=== PATIENT | female | born 1965 | race Caucasian/White ===

== ENCOUNTER 2017-04-09 04:52 | Observation (INO) ==
[2017-04-09] MEDS ORDERED: *HR* Morphine 2 MG/ML SYRINGE IVP ONE (05:16)
[2017-04-09] MEDS ORDERED: Ondansetron 4 MG/2 ML VIAL IVP ONE ×2 (05:16→18:28)
[2017-04-09] MEDS ORDERED: 0.9 % Sodium Chloride 1,000 ML IVC ONE (05:16)
[2017-04-09 05:21] LABS: Bilirubin,Urine Negative (Negative); Blood,Urine Negative (Negative); Clarity,Urine Clear (Clear); Color,Urine Yellow (Yellow); Glucose,Urine (UA) Normal (Normal); Ketones,Urine Negative (Negative); Leukocyte Esterase,Urine Negative (Negative); Nitrite,Urine Negative (Negative); PH,Urine 5.5 pH Units (5.0-8.0); Protein,Urine Negative (Neg-Trace); Specific Gravity,Urine 1.018 (1.010-1.025); Urobilinogen,Urine Normal (Normal)
[2017-04-09] MEDS ORDERED: cefOXitin 2,000 MG in D5% in Water (Mini-Bag+) 100 ML IVPB ONE (05:44)
[2017-04-09 05:52] LABS: Basophils # 0.1 K/mcL (0.0-0.2); Basophils % 0.3 %; Eosinophils % 0.1 %; Hematocrit 41.5 % (35.3-44.9); Hemoglobin 13.6 g/dL (11.5-15.4); Immature Granulocytes % 0.6 % (0-4); Lymphocytes # 1.9 K/mcL (0.6-4.6); Mean Corpuscular HGB Conc 32.8 g/dL (31.6-35.5); Mean Corpuscular Hemoglobin 28.8 pg (28.0-33.3); Mean Corpuscular Volume 87.7 fL (83.0-100.0); Mean Platelet Volume 8.8 fL (9.4-12.4); Monocytes # 0.9 K/mcL (0.0-1.3); Monocytes % 4.4 %; Neutrophils # 18.1 K/mcL (1.6-8.9); Platelet Count 377 K/mcL (140-400); Red Blood Count 4.73 M/mcL (3.82-4.97); Red Cell Distribution Width 12.4 % (11.5-14.5); Segmented Neutrophils % 85.6 %
--- NOTE | 2017-04-09 05:52 | Emergency Department Note ---
Disposition Clinical Impression: Acute appendicitis Qualifiers: Acute appendicitis type: with localized peritonitis Qualified Code(s): K35.3 - Acute appendicitis with localized peritonitis Disposition: Home, Self-Care Condition: Good Referrals: Lima Gotti CNP [Primary Care Provider] - Forms: Work/School Release, ED Satisfaction Letter Abdominal Pain HPI - General Chief Complaint: ED Abdominal Pain Stated Complaint: "Abd Pain/R Flank Pain" Source: patient Nursing Notes Reviewed: Yes Vital Signs Reviewed: Yes - History of Present Illness HPI Narrative: 51-year-old female presents with acute onset abdominal pain at 11 PM last evening. Pain worse with movement. Previous history of , cholecystectomy. Admits to history of hypertension currently taking lisinopril. Denies any other medical problems. Abdominal pain isolated to right lower quadrant on arrival. Vital signs stable on arrival. Pain Scale: 8 - Related Data Home Medications Medication Instructions Recorded Confirmed Duloxetine HCl [Cymbalta] 60 mg PO DAILY 07/14/15 04/04/16 Ezetimibe/Simvastatin [Vytorin 1 tab PO DAILY 07/14/15 04/04/16 10-40 mg Tablet] Lisinopril/Hydrochlorothiazide 1 tab PO DAILY 07/14/15 04/04/16 [Zestoretic 10-12.5 mg Tablet] ALPRAZolam [Xanax 1 MG Tablet] 1 mg PO TID PRN 04/04/16 04/04/16 Biotin 5 mg PO DAILY 04/04/16 04/04/16 Bupropion HCl [Wellbutrin Xl] 300 mg PO DAILY 04/04/16 04/04/16 Allergies Allergy/AdvReac Type Severity Reaction Status Date / Time Penicillins [PCN] Allergy Rash Verified 04/09/17 04:57 All systems ED: reviewed and negative except as stated. Abdominal Pain PMH - Past Medical History Medical history: Reports: hyperlipidemia, hypertension, other Female Surgical History: Reports: , cholecystectomy, hysterectomy Psychiatric history: Reports: depression - Social History Smoking status: Never smoker Alcohol use: Reports: none Drug use: Reports: none Physical Exam Right lower quadrant abdominal pain tender on palpation without peritonitis - General Limitations: no limitations General appearance: alert Course Vital Signs Temperature 97.7 F 04/09/17 04:54 Pulse Rate 106 04/09/17 04:54 Respiratory Rate 16 04/09/17 04:54 Blood Pressure 126/80 04/09/17 04:54 O2 Sat by Pulse Oximetry 94 04/09/17 04:54 Temperature 97.7 F 04/09/17 04:54 Pulse Rate 91 04/09/17 05:49 Respiratory Rate 16 04/09/17 05:49 Blood Pressure 110/74 04/09/17 05:49 O2 Sat by Pulse Oximetry 95 04/09/17 05:49 Oxygen Delivery Oxygen Delivery Room Air Abdominal Pain - MDM Narrative Medical decision making narrative: Female patient with acute appendicitis. Admit to surgical services. Discussed case with attending surgeon. Zosyn administered. - Lab Data Lab Results 04/09/17 Range/Units 05:10 Urine Color Yellow (Yellow) Urine Clarity Clear (Clear) Urine pH 5.5 (5.0-8.0) pH Units Ur Specific [place] 1.018 (1.010-1.025) Urine Protein Negative (Neg-Trace) mg/dL Urine Glucose (UA) Normal (Normal) mg/dL Urine Ketones Negative (Negative) mg/dL Urine Blood Negative (Negative) Urine Nitrite Negative (Negative) Urine Bilirubin Negative (Negative) Urine Urobilinogen Normal (Normal) mg/dL Ur Leukocyte Esterase Negative (Negative)
[2017-04-09 06:08] LABS: Alanine Aminotransferase 17 Units/L (0-55); Albumin 3.8 g/dL (3.5-5.0); Albumin/Globulin Ratio 1.1 (1.1-2.2); Alkaline Phosphatase 126 Units/L (38-126); Aspartate Amino Transferase 17 Units/L (5-34); BUN/Creatinine Ratio 11 (6-26); Bilirubin,Direct 0.2 mg/dL (0.0-0.5); Bilirubin,Indirect 0.1 mg/dL (0.0-1.2); Bilirubin,Total 0.3 mg/dL (0.2-1.2); Blood Urea Nitrogen 12 mg/dL (7-20); Carbon Dioxide 26 mEq/L (19-29); Chloride 101 mEq/L (98-109); Globulin 3.4 g/dL (2.4-3.5); Glucose 133 mg/dL (70-99); Lipase 13 Units/L (8-78); Osmolality,Calculated 286 (280-300); Potassium 3.4 mEq/L (3.5-4.5); Sodium 137 mEq/L (136-145); Total Protein 7.2 g/dL (6.0-8.3); eGFR For African Americans > 60 (> 60); eGFR For Non-African Americans 54 (> 60)
[2017-04-09] MEDS ORDERED: Naloxone 0.4 MG/ML INJ IVP PRN ×2 (07:08→19:37)
[2017-04-09] MEDS ORDERED: *HR* Metoprolol 5 MG/5 ML VIAL IVP PRN ×2 (07:08→19:37)
[2017-04-09] MEDS ORDERED: *HR* Morphine 2 MG/ML SYRINGE IVP PRN ×2 (07:08→19:37)
[2017-04-09] MEDS ORDERED: *HR* Promethazine 25 MG/ML VIAL IVP PRN ×3 (07:08→19:37)
[2017-04-09] MEDS ORDERED: Ondansetron 4 MG/2 ML VIAL IVP PRN ×2 (07:08→19:37)
[2017-04-09] MEDS ORDERED: 0.9 % Sodium Chloride 1,000 ML IVC SCH (07:15)
[2017-04-09] MEDS: MetroNIDAZOLE 500 MG/100 ML 500 MG/100 ML BAG IVPB SCH ×3 (08:50→23:31)
[2017-04-09] MEDS ORDERED: SIMVASTATIN PO SCH (09:00)
[2017-04-09] MEDS ORDERED: Pantoprazole 40 MG VIAL IVP SCH (09:00)
[2017-04-09] MEDS ORDERED: EZETIMIBE PO SCH (09:00)
[2017-04-09] MEDS ORDERED: BuPROPion XL (24 HR) 150 MG TABLET PO SCH (09:00)
--- NOTE | 2017-04-09 10:43 | General Surg History&Physical ---
<Jeff Chanel - Last Filed: 04/09/17 15:50> Date of Encounter: 04/09/17 Time of Encounter: 07:45 Assessment and Plan (1) Acute appendicitis Current Visit: Yes Status: Acute Imaging and clinical picture, including physical exam and elevated WBC, are consistent with appendicitis. Patient is NPO, receiving iv fluids, and antibiotics (cipro/flagyl). Plan is for laparoscopic appendectomy, possible open. Risks and benefits were discussed and patient wishes to proceed. The assessment and plan as outlined above was discussed with the patient and/or family members who expressed understanding and agreement. All questions were answered. Qualifiers: Acute appendicitis type: with localized peritonitis Qualified Code(s): K35.3 - Acute appendicitis with localized peritonitis (2) HTN (hypertension) Current Visit: Yes Status: Acute The assessment and plan as outlined above was discussed with the patient and/or family members who expressed understanding and agreement. All questions were answered. Qualifiers: Qualified Code(s): I10 - Essential (primary) hypertension History of Present Illness Chief complaint: Abdominal Pain HPI: Ms. Mcgee is a 51 year old female with PMH of depression, HTN, and HLD who presents to [facility] with 1 day of abdominal pain. She states that the pain is 8-9/ 10 in intensity, constant in timing, and alternating sharp and dull in quality. It's location was originally all across her lower abdomen but has since localized to the RLQ. She admits to a BM that was diarrhea soon after the pain started that originally lessened the pain, but it has returned in full force. She states that walking around made the pain worse, and she denies any remitting factors. She admits to nausea, vomiting x1, and anorexia. She denies fevers and chills. She has a past surgical history that includes, , hysterectomy, and cholecystectomy. Past Med Surg Social Fam HX - Past Medical History Medical history: hyperlipidemia, hypertension, other Psychiatric history: depression - Past Surgical History Surgical History: , cholecystectomy, hysterectomy - Social History Smoking Status: Never smoker Smokeless Tobacco Status: No Alcohol use: occasionally Drug use: none - Family History Father Living Status: Age at : 61 Cause of : lung cancer Paternal Grandmother Living Status: Cause of : CVA Medications and Allergies Duloxetine HCl [Cymbalta] 60 mg PO DAILY 07/14/15 [History] Ezetimibe/Simvastatin [Vytorin 10-40 mg Tablet] 1 tab PO DAILY 07/14/15 [History ] Lisinopril/Hydrochlorothiazide [Zestoretic 10-12.5 mg Tablet] 1 tab PO DAILY [History] ALPRAZolam [Xanax 1 MG Tablet] 1 mg PO TID PRN 04/04/16 [History] Bupropion HCl [Wellbutrin Xl] 300 mg PO DAILY 04/04/16 [History] Allergies Penicillins [PCN] Allergy (Verified 04/09/17 04:57) Rash Review of Systems All systems PM: A 10-system review of systems was performed and is negative for pertinent findings except as documented above in the HPI. - Constitutional anorexia, night sweats, no chills, no fever(s) - Gastrointestinal abdominal pain, bloating, diarrhea, nausea, vomiting General Surgery Exam Initial Vital Signs Temp Pulse Resp BP Pulse Ox 97.7 F 106 16 126/80 94 04/09/17 04:54 04/09/17 04:54 04/09/17 04:54 04/09/17 04:54 04/09/17 04:54 - General physical appearance well developed, well nourished, no distress - Eyes normal ocular movement - ENT atraumatic, normocephalic - Neck trachea midline - Respiratory normal expansion, normal respiratory effort, clear to auscultation - Cardiovascular Cardiovascular exam: Present: RRR - Abdomen Abdomen general surgery: Present: soft, tender. Absent: guarding, rebound, peritoneal Abdominal Tenderness: Present: RLQ - Musculoskeletal Present: normal posture - Psychiatric Psychiatric general surgery: Present: appropriate, speech is normal Results - Labs 04/09/17 05:43 04/09/17 05:43 Abnormal lab results WBC 21.1 K/mcL (4.3-11.1) H 04/09/17 05:43 MPV 8.8 fL (9.4-12.4) L 04/09/17 05:43 Neutrophils # 18.1 K/mcL (1.6-8.9) H 04/09/17 05:43 Potassium 3.4 mEq/L (3.5-4.5) L 04/09/17 05:43 Est GFR (Non-Af Amer) 54 (> 60) L 04/09/17 05:43 Glucose 133 mg/dL (70-99) H 04/09/17 05:43 All other labs normal. - Imaging CT scan - abdomen: report reviewed (IMPRESSION: Appendicitis. D/T: 2016 05:31:53 / Jorge Millan MD / Jorge Millan MD Interpreting Provider: Jorge Millan MD : 54), image reviewed CT scan - pelvis: report reviewed, image reviewed <Sammie lCark L - Last Filed: 04/09/17 19:11> Date of Encounter: 04/09/17 Assessment and Plan (1) Acute appendicitis Current Visit: Yes Status: Acute The assessment and plan as outlined above was discussed with the patient and/or family members who expressed understanding and agreement. All questions were answered. Qualifiers: Acute appendicitis type: with localized peritonitis Qualified Code(s): K35.3 - Acute appendicitis with localized peritonitis (2) HTN (hypertension) Current Visit: Yes Status: Acute The assessment and plan as outlined above was discussed with the patient and/or family members who expressed understanding and agreement. All questions were answered. Qualifiers: Hypertension type: essential hypertension Qualified Code(s): I10 - Essential (primary) hypertension (3) Acute appendicitis Current Visit: Yes Status: Acute The assessment and plan as outlined above was discussed with the patient and/or family members who expressed understanding and agreement. All questions were answered. Discussed CT results and labs with patient. She has acute appendicitis. WIll plan laparoscopic appendectomy, possible open ,risks and benefits discussed and she wishes to proceed continue Abx prn pain control npo ivfh Qualifiers: Acute appendicitis type: unspecified acute appendicitis type Qualified Code (s): K35.80 - Unspecified acute appendicitis History of Present Illness HPI: Ms. Mcgee is a 51 year old female who yesterday started having lower mid abdominal pain which has radiated to RLQ. SHe had some diarrhea and felt a little better. Around 11 pm the RLQ pain was severe. She took tums for N/V which didn't help. No dysuria. No fevers chills or night sweats. Past Med Surg Social Fam HX - Past Medical History Source: patient - Past Surgical History Surgical History: , cholecystectomy, hysterectomy, other (tonsillectomy ) Review of Systems All systems PM: reviewed and no additional remarkable complaints except as stated All systems PM: A 10-system review of systems was performed and is negative for pertinent findings except as documented above in the HPI. General Surgery Exam Initial Vital Signs Temp Pulse Resp BP Pulse Ox 97.7 F 106 16 126/80 94 04/09/17 04:54 04/09/17 04:54 04/09/17 04:54 04/09/17 04:54 04/09/17 04:54 - General physical appearance well nourished - Eyes PERRL, normal ocular movement - Neck trachea midline - Respiratory normal expansion, clear to auscultation - Cardiovascular Cardiovascular exam: Present: RRR, no murmurs/rubs/gallops - Abdomen Abdomen general surgery: Present: bowel sounds present, tender. Absent: guarding, rebound, peritoneal Abdominal Tenderness: Present: RLQ - Integumentary Integumentary general surgery: Present: warm and dry, no abnormal pigmentation - Neurologic Present: CN 2-12 grossly intact - Musculoskeletal Present: normal posture - Psychiatric Psychiatric general surgery: Present: A&Ox3, appropriate, speech is normal Results - Labs 04/09/17 05:43 04/09/17 05:43 Abnormal lab results WBC 21.1 K/mcL (4.3-11.1) H 04/09/17 05:43 MPV 8.8 fL (9.4-12.4) L 04/09/17 05:43 Neutrophils # 18.1 K/mcL (1.6-8.9) H 04/09/17 05:43 Potassium 3.4 mEq/L (3.5-4.5) L 04/09/17 05:43 Est GFR (Non-Af Amer) 54 (> 60) L 04/09/17 05:43 Glucose 133 mg/dL (70-99) H 04/09/17 05:43 POC Glucose 100 (58-89) H 04/09/17 11:40 All other labs normal. - Imaging CT scan - abdomen: report reviewed, image reviewed CT scan - pelvis: report reviewed, image reviewed - Attending Attestation I examined this patient and my medical decision-making was reviewed with the Resident Physician. I agree with the documented findings, disposition and treatment plan as described except to the extent set forth below.
[2017-04-09] MEDS ORDERED: *HR* Propofol 200 MG/20 ML VIAL IVP ONE (16:15)
[2017-04-09] MEDS ORDERED: Dexamethasone 4 MG/ML VIAL ONE (16:15)
[2017-04-09] MEDS ORDERED: *HR* Rocuronium Bromide 50 MG/5 ML VIAL ONE (16:15)
[2017-04-09] MEDS ORDERED: Lidocaine -MPF 2% 2 ML VIAL ONE (16:15)
[2017-04-09] MEDS ORDERED: Ondansetron 4 MG/2 ML VIAL ONE (16:15)
[2017-04-09] MEDS ORDERED: *HR* FentaNYL (PF) 100 MCG/2 ML VIAL ONE (16:15)
[2017-04-09] MEDS ORDERED: *HR* Midazolam HCl 2 MG/2 ML VIAL ONE (16:15)
[2017-04-09] MEDS ORDERED: Lidocaine -MPF 4% 5 ML AMPUL ONE (16:22)
--- NOTE | 2017-04-09 16:47 | Anesthesia Evaluation PreOp ---
Date of Encounter: 04/09/17 Time of Encounter: 16:43 - Past History Planned Operation: Lap appendectomy Cardiac History: HTN, Hyperlipidemia Pulmonary History: Denies Any Significant HX CARGO AGENT History: Denies Any Significant HX Other Medical History: Denies Any Significant HX Anesthesia History: No Prior Anesthetic Complications Alcohol Use: occasionally Drug use: none Medications and Allergies Duloxetine HCl [Cymbalta] 60 mg PO DAILY 07/14/15 [History] Ezetimibe/Simvastatin [Vytorin 10-40 mg Tablet] 1 tab PO DAILY 07/14/15 [History ] Lisinopril/Hydrochlorothiazide [Zestoretic 10-12.5 mg Tablet] 1 tab PO DAILY [History] ALPRAZolam [Xanax 1 MG Tablet] 1 mg PO TID PRN 04/04/16 [History] Bupropion HCl [Wellbutrin Xl] 300 mg PO DAILY 04/04/16 [History] Allergies Penicillins [PCN] Allergy (Verified 04/09/17 04:57) Rash - Meds/Allergy Pre-op Review Medications Reviewed: Yes Allergies Reviewed: Yes Beta Blockers on Current Med List: No Anesthesia Results - Labs 04/09/17 05:43 04/09/17 05:43 - Imaging EKG: report reviewed, image reviewed (SINUS RHYTHM NONSPECIFIC T-WAVE ABNORMALITY) Anesthesia Exam Last Vital Signs Temp 98.4 F 04/09/17 15:45 Pulse 90 04/09/17 15:45 Resp 14 04/09/17 15:45 BP 104/70 04/09/17 15:45 Pulse Ox 95 04/09/17 15:45 Weight: 85 kg NPO (# of Hours): >> 8 hrs - HEENT Pupil (Motor): Pupils equal, EOMI Mallampati: III Teeth: Missing, Poor dentition Oral Opening: Greater than 3 - CARGO AGENT LOC: Oriented CARGO AGENT Motor: Normal RUE, Normal LUE, Normal RLE, Normal LLE, Normal Face - Cardiac Rhythm: Regular Murmur: None - Pulmonary Breath Sounds: bilateral Clear Respiratory Effort: Symmetrical Anesthesia Assess/Plan ASA Score: 2 [place] Scale for Level of Consciousness: Cooperative, oriented, and tranquil Anesthetic Plan: General Monitoring Plan: Standard Monitors Recovery Plan: PACU
[2017-04-09] MEDS ORDERED: *HR* Labetalol 20 MG/4 ML SYRINGE IVP PRN (18:28)
[2017-04-09] MEDS ORDERED: Ketorolac 15 MG/ML VIAL IVP ONE (18:28)
[2017-04-09] MEDS ORDERED: Dexamethasone 4 MG/ML VIAL IVP ONE (18:28)
[2017-04-09] MEDS ORDERED: *HR* HYDROmorphone (PF) 1 MG/ML SYRINGE IVP PRN (18:28)
[2017-04-09] MEDS ORDERED: Neostigmine Methylsulfate 3 MG/3 ML SYRINGE ONE ×2 (18:37→18:45)
--- NOTE | 2017-04-09 19:13 | Operative Note ---
Date of procedure: 04/09/17 Pre-op diagnosis: acute appendicitis Post-op diagnosis: same Procedure: Laparoscopic appendectomy Complications: None immediate Anesthesia: GETA, local Local Anesthetics: 0.5% Sensorcaine HCL SubQ (cc) (30) Surgeon: Sammie Clark Estimated blood loss (cc): 5 Specimen: appendix Condition: stable Disposition: PACU Procedure in Detail: The patient was brought into the operating suite and placed supine on the operating table. Sign-in was performed and everyone was in agreement. Anesthesia was induced and patient was endotracheally intubated by anesthesia without incident. An OG tube was placed by anesthesia. The abdomen was prepped and draped in the usual sterile fashion. A timeout was performed and again everyone was in agreement. A supraumbilical incision was made through the skin and the subcutaneous tissue with an 11 blade. Towel clamps were placed on either side of the umbilicus for retraction. S-retractors were used to dissect down to the anterior abdominal wall linea alba fascia. A Veress needle was placed into this incision and a water drop test confirmed placement and the abdomen was insufflated. We then entered the abdomen with the 5 mm 0 degree laparoscope on a 5 mm X-gael trocar. The area under entry was visualized and there was no bleeding and no apparent bowel injury. We placed a suprapubic 5 mm port under direct visualization after first incising the skin with an 11 blade. The laparoscope was placed through this and we exchanged the supraumbilical port for a 12 mm port under direct visualization. We then placed another 5 mm port in the left lower quadrant position under direct visualization after first incising the skin with an 11 blade. The patient was placed in slight Trendelenburg left side down position. The cecum was located as was the appendix. The appendix was grasped and retracted anteriorly and caudally with a laparoscopic [place]. A [place] was used to dissect between the mesoappendix and the appendix at the base of the cecum. The mesoappendix was transected with a laparoscopic flex-ex ETS stapler using a white load. The appendix was transected at the base of the cecum with the same stapler utilizing a white load. The appendix was placed in a laparoscopic Endo Catch bag and removed via the supraumbilical incision site. Both staple lines were evaluated and there was no bleeding and both staple lines were intact. The area was irrigated with sterile saline which was then suctioned free from the abdomen. The insufflation was suctioned free from the abdomen and all trochars removed. We closed the abdominal wall at the supraumbilical incision site with an 0 Vicryl [id number] stitch. A 30 cc of 0.5% Marcaine was injected subcutaneously at the 3 port sites. The skin at the two 5 mm port sites was closed with 4-0 Monocryl interrupted subcuticular stitches. The skin at the supraumbilical incision site was closed with a 4-0 Monocryl running subcuticular stitch. Steri-Strips were applied to the wounds. The patient was extubated in the OR and tolerated the procedure well and was taken to PACU after all lap and instrument counts were correct at the end of the case.
--- NOTE | 2017-04-09 19:33 | Anesthesia Evaluation Post Op ---
Date of Encounter: 04/09/17 Time of Encounter: 19:30 - Vital Signs Vital Signs: Vital Signs/O2 Sat/Glucose, Most Current Temp Pulse Resp BP Pulse Ox 04/09/17 19:26 98.6 F 96 16 97/65 93 04/09/17 19:16 102 18 99/59 93 04/09/17 19:06 97 20 98/61 95 04/09/17 18:56 97.8 F 102 16 106/74 93 04/09/17 15:45 98.4 F 90 14 104/70 95 - Lungs Lungs: Clear Ascult./Percussion - Airway Airway: Non-obstructed - Cardiovascular Regular Rate - Mental Status Mental Status: Alert & Oriented, Answers Appropriately - Pain Pain Scale: 0 - Nausea Vomiting Nausea Vomiting: Not Present - Hydration Hydration: Ice chips - Discharge PostOp Status: Transfer Patient to floor
[2017-04-09] MEDS: 0.9 % Sodium Chloride 1,000 ML IVC SCH (21:20)
[2017-04-10 05:02] LABS: Basophils % 0.1 %; Hematocrit 37.2 % (35.3-44.9); Immature Granulocytes % 0.4 % (0-4); Lymphocytes # 0.7 K/mcL (0.6-4.6); Lymphocytes % 4.9 %; Mean Corpuscular HGB Conc 32.3 g/dL (31.6-35.5); Mean Corpuscular Hemoglobin 28.8 pg (28.0-33.3); Mean Corpuscular Volume 89.2 fL (83.0-100.0); Mean Platelet Volume 9.2 fL (9.4-12.4); Monocytes # 0.1 K/mcL (0.0-1.3); Neutrophils # 13.3 K/mcL (1.6-8.9); Platelet Count 333 K/mcL (140-400); Red Blood Count 4.17 M/mcL (3.82-4.97); Red Cell Distribution Width 12.8 % (11.5-14.5); Segmented Neutrophils % 93.6 %
[2017-04-10] MEDS: MetroNIDAZOLE 500 MG/100 ML 500 MG/100 ML BAG IVPB SCH (07:45)
[2017-04-10] MEDS: 0.9 % Sodium Chloride 1,000 ML IVC SCH (08:01)
[2017-04-10] MEDS ORDERED: Patient Taking Own Medication 1 EACH PO SCH (09:00)
[2017-04-10] MEDS ORDERED: Pantoprazole 40 MG VIAL IVP SCH (09:00)
[2017-04-10] MEDS ORDERED: BuPROPion XL (24 HR) 150 MG TABLET PO SCH (09:00)
--- NOTE | 2017-04-10 09:57 | General Surgery Progress Note ---
Date of Encounter: 04/10/17 Time of Encounter: 08:00 - Assessment and Plan (1) Acute appendicitis Current Visit: Yes Status: Acute s/p laparoscopic appendectomy with Dr. Clark POD #1 Clinically improved WBC trending down Tolerating clears, but no flatus or BM at this point Await return of bowel function Qualifiers: Acute appendicitis type: with localized peritonitis Qualified Code(s): K35.3 - Acute appendicitis with localized peritonitis (2) HTN (hypertension) Current Visit: Yes Status: Acute Stable Qualifiers: Hypertension type: essential hypertension Qualified Code(s): I10 - Essential (primary) hypertension Subjective Patient reports: no new complaints, feels better, tolerating liquids well, voiding w/o difficulty, no flatus, no bowel movement, afebrile Objective Vital Signs - Last 8 Hours Temp Pulse Resp BP Pulse Ox 04/10/17 07:35 93 04/10/17 07:33 98.2 F 88 18 95/67 93 04/10/17 04:33 98.1 F 98 18 126/72 95 Intake and Output 04/09/17 04/10/17 04/10/17 23:59 07:59 15:59 Intake Total 0 / 0 1675 / 1675 Output Total 5 / 5 700 / 700 Balance -5 / -5 975 / 975 Intake: IV Fluids 1675 / 1675 0.9 % Sodium Chloride 1, 1575 / 1575 000 ML @ 110 mls/hr IVC . Q9H6M [facility] Rx#:[id number] Flagyl Premix 500 MG/100 100 / 100 ML 500 mg In 100 ml @ 100 mls/hr IVPB Q8HR [facility] Rx# :[id number] Oral 0 / 0 0 / 0 Output: Urine 700 / 700 Estimated Blood Loss 5 / 5 Other: Meal NPO Percent of Meal Consumed 0% # Voids 2 Weight 85.16 kg Patient Weight 04/10/17 23:59 Weight 85.16 kg - General physical appearance well developed, well nourished, no distress - Eyes normal ocular movement - ENT atraumatic, normocephalic - Respiratory normal expansion, normal respiratory effort, clear to auscultation - Cardiovascular Cardiovascular exam: Present: RRR - Abdomen Abdomen: Present: bowel sounds present, soft, non tender - Incision Incision: Present: clean and dry, intact - Musculoskeletal normal posture - Psychiatric speech is normal - Labs 04/10/17 04:09 04/09/17 05:43 - VTE Documentation of Mechanical Device: Intermittent pneumatic compression device Consult Discharge Plan - Plan Referrals: Lima Gotti, FEEDER OPERATOR [Primary Care Provider] -
--- NOTE | 2017-04-10 10:51 | Discharge Summary ---
<Jeff Chanel - Last Filed: 04/10/17 10:48> Date of Encounter: 04/10/17 Time of Encounter: 07:30 - Discharge Diagnosis (1) Acute appendicitis Priority: Primary Status: Resolved Qualifiers: Acute appendicitis type: with localized peritonitis Qualified Code(s): K35.3 - Acute appendicitis with localized peritonitis (2) HTN (hypertension) Priority: Secondary Status: Acute Qualifiers: Hypertension type: essential hypertension Qualified Code(s): I10 - Essential (primary) hypertension - Discharge Medications Prescriptions: OxyCODONE/APAP 10/325 [Percocet 10/325 MG] 1 each PO Q4HR PRN #30 tablet PRN Reason: Pain Docusate [Colace] 100 mg PO BID #10 capsule Home Medications: Duloxetine HCl [Cymbalta] 60 mg PO DAILY 07/14/15 [History] Ezetimibe/Simvastatin [Vytorin 10-40 mg Tablet] 1 tab PO DAILY 07/14/15 [History ] Lisinopril/Hydrochlorothiazide [Zestoretic 10-12.5 mg Tablet] 1 tab PO DAILY [History] ALPRAZolam [Xanax 1 MG Tablet] 1 mg PO TID PRN 04/04/16 [History] Bupropion HCl [Wellbutrin Xl] 300 mg PO DAILY 04/04/16 [History] Docusate [Colace] 100 mg PO BID #10 capsule 04/10/17 [Rx] OxyCODONE/APAP 10/325 [Percocet 10/325 MG] 1 each PO Q4HR PRN #30 tablet [Rx] Allergies/Adverse Reactions: Allergies Penicillins [PCN] Allergy (Verified 04/09/17 04:57) Rash General Surgery Exam Initial Vital Signs Temp Pulse Resp BP Pulse Ox 97.7 F 106 16 126/80 94 04/09/17 04:54 04/09/17 04:54 04/09/17 04:54 04/09/17 04:54 04/09/17 04:54 - General physical appearance well developed, well nourished, no distress - Eyes normal ocular movement - ENT atraumatic, normocephalic - Neck trachea midline - Respiratory normal expansion, normal respiratory effort, clear to auscultation - Cardiovascular Cardiovascular exam: Present: RRR - Abdomen Abdomen general surgery: Present: bowel sounds present, soft, tender (Expected postoperative tenderness) - Incision Incision: Present: clean and dry, intact - Musculoskeletal Present: normal posture - Psychiatric Psychiatric general surgery: Present: appropriate, speech is normal Date of admission: 04/09/17 05:55 Primary care physician: Lima Gotti CNP Discharging clinician: Jeff Chanel Anticipated date of discharge: 04/10/17 - Patient Status Disposition: Home, Self-Care Condition: Good Functional capacity at discharge: independent ambulation Overall status at discharge: patient is progressing back to baseline - Discharge Instructions Instructions: Oxycodone/Acetaminophen (By mouth), Laxative, Stool Softeners ( By mouth), Laparoscopic Appendectomy (DC) Follow Up With: Sammie Clark MD [Partnered Physician] - 04/20/17 8:30 am Lima Gotti CNP [Primary Care Provider] - Additional Instructions: Follow up in [address] Clark. #1 may shower starting 04/10/17, no tub bath or swimming for 2 weeks #2 wash incisions with soap and water and pat dry daily #3 no lifting, pushing, pulling more than 15 pounds for the next 2 weeks #4 no driving until off narcotics for 24 hours and able to safely react in the car #5 may climb stairs - Diet and Activity Activity: resume usual activities as tolerated Diet: advance to your usual diet - Hospital Course Hospital course: Ms. Mcgee is a 51 year old female who presented to [facility] with one day of abdominal pain that started in the lower abdomen and localized to the RLQ. She was found to have an elevated WBC count (21.1) and CT revealed appendicitis. Laparoscopic appendectomy was performed by Dr. Clark without complication. Since the surgery, her WBC fell to 14.2 and she is greatly improved clinically. She has tolerated clears without nausea or discomfort. She is expected to continue improving. - Time Spent with Patient Total time spent providing and/or coordinating discharge services: Less than 30 minutes Labs on day of discharge: Labs from last 24 hours 04/10/17 04/09/17 04:09 11:40 WBC 14.2 H RBC 4.17 Hgb 12.0 D Hct 37.2 MCV 89.2 MCH 28.8 MCHC 32.3 RDW 12.8 Plt Count 333 MPV 9.2 L Immature Gran % 0.4 Seg Neutrophils % 93.6 Lymphocytes % 4.9 Monocytes % 1.0 Eosinophils % 0.0 Basophils % 0.1 Neutrophils # 13.3 H Lymphocytes # 0.7 Monocytes # 0.1 Eosinophils # 0.0 Basophils # 0.0 POC Glucose 100 H <Lima Palomino - Last Filed: 04/10/17 11:25> Date of Encounter: 04/10/17 General Surgery Exam Initial Vital Signs Temp Pulse Resp BP Pulse Ox 97.7 F 106 16 126/80 94 04/09/17 04:54 04/09/17 04:54 04/09/17 04:54 04/09/17 04:54 04/09/17 04:54 Date of admission: 04/09/17 05:55 Primary care physician: Lima Gotti CNP - Hospital Course Hospital course: Ms. Mcgee is a 51 year old female - Time Spent with Patient Total time spent providing and/or coordinating discharge services: Labs on day of discharge: Labs from last 24 hours 04/10/17 04/09/17 04:09 11:40 WBC 14.2 H RBC 4.17 Hgb 12.0 D Hct 37.2 MCV 89.2 MCH 28.8 MCHC 32.3 RDW 12.8 Plt Count 333 MPV 9.2 L Immature Gran % 0.4 Seg Neutrophils % 93.6 Lymphocytes % 4.9 Monocytes % 1.0 Eosinophils % 0.0 Basophils % 0.1 Neutrophils # 13.3 H Lymphocytes # 0.7 Monocytes # 0.1 Eosinophils # 0.0 Basophils # 0.0 POC Glucose 100 H
[2017-04-10 11:14] VITALS: BP 106/68
== END 2017-04-10 12:22 | disposition home or self-care (01) ==
LOC: EMEROO 04:52 → 3ANU 04:52
PROVIDERS: ADMIT Surgery; ATTEND Surgery